=== PATIENT | male | born 1950 | race Caucasian/White ===

== ENCOUNTER → 2020-07-17 | Outpatient (CLI) | payer MEDICARE, OTHER | LOC: US 07-13 15:00 → KOH-I 13:05 | DX: M79.605 Pain in left leg (principal); R93.1 Abnormal findings on diagnostic imaging of heart and coronary circulation | CPT/HCPCS: 93926; 93971 ==

== ENCOUNTER → 2020-07-21 | Outpatient (CLI) | payer MEDICARE, OTHER | LOC: KOH-I 08:17 | DX: M25.552 Pain in left hip (principal) | CPT/HCPCS: 73502 ==

== ENCOUNTER → 2021-02-08 | Outpatient (CLI) | payer MEDICARE | LOC: KOH-I 11:10 | DX: Z09 Encounter for follow-up examination after completed treatment for conditions other than malignant neoplasm (principal); Z87.891 Personal history of nicotine dependence | CPT/HCPCS: 71271 ==

== ENCOUNTER → 2021-03-12 | Outpatient (CLI) | payer MEDICARE | LOC: KOH-I 14:45 | DX: R10.9 Unspecified abdominal pain (principal); N20.0 Calculus of kidney | CPT/HCPCS: 74176 ==

== ENCOUNTER → 2021-09-28 | Outpatient (CLI) | payer MEDICARE | LOC: EXRD 08:11 | DX: Z13.6 Encounter for screening for cardiovascular disorders (principal); R79.89 Other specified abnormal findings of blood chemistry; I77.819 Aortic ectasia, unspecified site; E01.0 Iodine-deficiency related diffuse (endemic) goiter | CPT/HCPCS: 76536; 76706 ==

== ENCOUNTER → 2021-12-06 | Outpatient (CLI) | payer MEDICARE | LOC: KOH-I 13:03 | DX: N20.0 Calculus of kidney (principal) | CPT/HCPCS: 74018 ==

== ENCOUNTER → 2022-01-17 | Outpatient (CLI) | payer BC | LOC: CT 14:50 | DX: I71.2 Thoracic aortic aneurysm, without rupture (principal); I10 Essential (primary) hypertension; Z91.81 History of falling | CPT/HCPCS: 36415; 71275; 82565; 84520 ==